=== PATIENT | male | born 1965 | race Caucasian/White ===

== ENCOUNTER 2024-04-30 11:47 | Outpatient (CLI) | payer OTHER, SELFPAY ==
--- NOTE | ~2024-04-30 | PE_ITS ---
EXAMINATION: PET skull to mid thigh DATE: 04/30/2024 14:17 INDICATION: Solitary nodule of lung. TECHNIQUE: Blood glucose level was 83 mg/dL. 10.812 mCi of 18-fluorodeoxyglucose (18-FDG) was adminis tered i.v. Low dose computed tomography (CT) images were acquired from the base of the brain to the p roximal thighs for attenuation correction and anatomic localization. Automated exposure control was e mployed. Dose-length product (DLP) was 1090 mGy-cm. Positron emission tomography (PET) images were ac quired in the same distribution. COMPARISON: None FINDINGS: Head/neck: There are no pathologically enlarged lymph nodes. Chest: There is a 14 mm nodule in left upper lobe with maximum SUV of 1.1. Calcified left hilar and m ediastinal lymph nodes are consistent with old granulomatous disease. No pleural effusion. The heart size is normal. No pericardial effusion. There are multiple healing left rib fractures. Abdomen/pelvis/proximal thighs: The liver, gallbladder, spleen, pancreas, and right adrenal gland are normal. There is a 2.2 cm mass in left adrenal gland measuring soft tissue attenuation without incre ased activity, likely an adenoma. The kidneys are normal. There is a left inguinal hernia containing fat. There is diverticulosis of the colon without evidence of diverticulitis. The appendix is normal. There are no pathologically enlarged lymph nodes. There is no free intraperitoneal fluid. There is n o osseous malignancy. IMPRESSION: 1. 14 mm nodule in left lung upper lobe without increased activity, probably granulomatous disease. N oncontrast low-dose chest CT is recommended in 6 months. Reviewed, dictated and finalized at location A. IMPRESSION: 1. 14 mm nodule in left lung upper lobe without increased activity, probably gr anulomatous disease. Noncontrast low-dose chest CT is recommended in 6 months.
[2024-04-30 12:27] LABS: Glucose Point of Care 83 mg/dl (65-105)
== END 2024-04-30 11:48 | disposition home or self-care (01) ==
LOC: ANHIMG 11:50
PROVIDERS: Visit Provider Internal Medicine Pulmonary Disease
DX: R91.1 Solitary pulmonary nodule (principal)
CPT/HCPCS: 78815; A9552